=== PATIENT | female | born 1950 | race Native Hawaiian/Other Pacific Islander ===

== ENCOUNTER 2017-01-10 22:46 | Emergency (ER) | payer OTHER ==
[~2017-01-10] VITALS: Ht 162.6 cm; Wt 63.5 kg
[~2017-01-10 22:46] MED LIST: BACTRIM DS1 TAB PO; LAC PO; LAC30L PO; MAG PO; METOPROLOL SUCC25 M1; NEO500 PO; SER25 PO; TOP50 PO; ZOFI IV; ZOFRAN4 MG PO
[2017-01-10 23:06] VITALS: BP 133/86
== END 2017-01-10 23:51 | disposition left against medical advice (07) ==
LOC: ED 22:46
DX: Z53.21 Procedure and treatment not carried out due to patient leaving prior to being seen by health care provider (principal)

== ENCOUNTER 2017-03-04 22:02 | Inpatient (IN) | payer OTHER ==
[~2017-03-04] VITALS: Ht 165.1 cm; Wt 69.0 kg
[2017-03-04 22:50] LABS: BASOPHIL % 0.6 % (0-2)
[2017-03-04 22:53] LABS: PLATELET COUNT 94 x10^3mcL (130-400); RED CELL DISTRIBUTION WIDTH 15.8 % (11.5-14.5)
[2017-03-04 22:57] LABS: CALCIUM 8.3 mg/dL (8.5-10.1); CARBON DIOXIDE 22.7 mmol/L (21-32); CHLORIDE SERUM 110 mmol/L (98-107); CREATININE SERUM 0.7 mg/dL (0.6-1.0); GFR1 > 60 mL/min; GLUCOSE SERUM 104 mg/dL (74-106); POTASSIUM SERUM 3.2 mmol/L (3.5-5.1); SODIUM SERUM 144 mmol/L (136-145)
[2017-03-04 23:10] LABS: ALKALINE PHOSPHATASE 107 U/L (46-116); ALT/SGPT 29 U/L (14-59); AST/SGOT 49 U/L (15-37); BILIRUBIN TOTAL 3.44 mg/dL (0.20-1.00); MAGNESIUM 1.1 mg/dL (1.8-2.4); T4(THYROXINE) 4.8 ug/dL (4.7-13.3); TOTAL PROTEIN, SERUM 6.9 g/dL (6.4-8.2)
[2017-03-04 23:12] LABS: ALBUMIN 2.9 g/dL (3.4-5.0)
[2017-03-05 01:00] VITALS: BP 163/124
[2017-03-05 01:06] VITALS: Ht 165.1 cm; Wt 69.0 kg
[2017-03-05 02:22] LABS: T3 TOTAL 0.72 ng/mL
[2017-03-05 02:26] LABS: FREE T4 0.93 ng/dL (0.76-1.46)
[2017-03-05 02:30] LABS: FREE THYROXINE INDEX 1.6 ug/dL (1.4-4.5); T4(THYROXINE) 4.6 ug/dL (4.7-13.3)
[2017-03-05 02:57] LABS: PHOSPHOROUS 3.5 mg/dL (2.5-4.9)
[2017-03-05 03:00] LABS: CHOLESTEROL/HDL RATIO 1.9
[2017-03-05 06:06] VITALS: BP 134/74
[2017-03-05 06:41] LABS: BASOPHIL % 0.7 % (0-2)
[2017-03-05 06:57] LABS: PLATELET COUNT 69 x10^3mcL (130-400); RED CELL DISTRIBUTION WIDTH 15.9 % (11.5-14.5)
[2017-03-05 07:22] LABS: CARBON DIOXIDE 21.2 mmol/L (21-32); CHLORIDE SERUM 120 mmol/L (98-107); CREATININE SERUM 0.7 mg/dL (0.6-1.0); GFR1 > 60 mL/min; GLUCOSE SERUM 95 mg/dL (74-106); MAGNESIUM 2.8 mg/dL (1.8-2.4); PHOSPHOROUS 2.9 mg/dL (2.5-4.9); POTASSIUM SERUM 3.4 mmol/L (3.5-5.1); SODIUM SERUM 146 mmol/L (136-145)
[2017-03-05 07:55] VITALS: BP 138/99
[2017-03-05 10:50] LABS: UA SPECIFIC GRAVITY 1.025 (1.005-1.035); microscopic required? YES; urine erythrocyte NEGATIVE (NEGATIVE)
[2017-03-05 13:14] LABS: AMPHETAMINE QUAL UR NONE DETECTED (NEG <=1000)
[2017-03-05 14:04] VITALS: BP 138/82
[2017-03-05 18:00] VITALS: BP 146/90
[2017-03-05 21:37] VITALS: BP 141/84
[2017-03-06 06:16] LABS: BASOPHIL % 0.5 % (0-2)
[2017-03-06 06:25] VITALS: BP 148/73
[2017-03-06 06:30] LABS: CARBON DIOXIDE 23.8 mmol/L (21-32); CHLORIDE SERUM 109 mmol/L (98-107); CREATININE SERUM 0.7 mg/dL (0.6-1.0); GFR1 > 60 mL/min; GLUCOSE SERUM 90 mg/dL (74-106); MAGNESIUM 1.1 mg/dL (1.8-2.4); PHOSPHOROUS 3.3 mg/dL (2.5-4.9); POTASSIUM SERUM 3.5 mmol/L (3.5-5.1); SODIUM SERUM 140 mmol/L (136-145)
[2017-03-06 08:08] LABS: RED CELL DISTRIBUTION WIDTH 15.4 % (11.5-14.5)
[2017-03-06 08:47] LABS: PLATELET COUNT 48 x10^3mcL (130-400)
[2017-03-06 10:07] VITALS: BP 175/92
== END 2017-03-06 13:43 | disposition left against medical advice (07) | DRG 917 ==
LOC: ED 22:02 → DU 23:59
PROVIDERS: Emergency Medicine; Family Medicine; ADMIT Family Medicine
DX: T51.0X1A Toxic effect of ethanol, accidental (unintentional), initial encounter (principal); I50.43 Acute on chronic combined systolic (congestive) and diastolic (congestive) heart failure; G92 Toxic encephalopathy; E43 Unspecified severe protein-calorie malnutrition; I47.1 Supraventricular tachycardia; N39.0 Urinary tract infection, site not specified; E87.0 Hyperosmolality and hypernatremia; D61.818 Other pancytopenia; S42.201A Unspecified fracture of upper end of right humerus, initial encounter for closed fracture; F10.129 Alcohol abuse with intoxication, unspecified; S42.001A Fracture of unspecified part of right clavicle, initial encounter for closed fracture; E83.42 Hypomagnesemia; E87.6 Hypokalemia; I10 Essential (primary) hypertension; D69.59 Other secondary thrombocytopenia; F32.9 Major depressive disorder, single episode, unspecified; F12.10 Cannabis abuse, uncomplicated; Z68.26 Body mass index [BMI] 26.0-26.9, adult; Y90.8 Blood alcohol level of 240 mg/100 ml or more; Y92.009 Unspecified place in unspecified non-institutional (private) residence as the place of occurrence of the external cause; X58.XXXA Exposure to other specified factors, initial encounter; Y93.9 Activity, unspecified; Y92.9 Unspecified place or not applicable
CPT/HCPCS: 83880; 84439; 97110-GP; G0480; J0696; J1885; J3475; J7030; Q0092

== ENCOUNTER 2017-03-13 19:16 | Emergency (ER) | payer OTHER ==
[2017-03-13 20:25] LABS: BASOPHIL % 0.7 % (0-2); RED CELL DISTRIBUTION WIDTH 14.5 % (11.5-14.5)
[2017-03-13 20:28] LABS: CALCIUM 8.9 mg/dL (8.5-10.1); CARBON DIOXIDE 25.6 mmol/L (21-32); CHLORIDE SERUM 107 mmol/L (98-107); CREATININE SERUM 0.8 mg/dL (0.6-1.0); GFR1 > 60 mL/min; GLUCOSE SERUM 135 mg/dL (74-106); PLATELET COUNT 112 x10^3mcL (130-400); POTASSIUM SERUM 3.6 mmol/L (3.5-5.1); SODIUM SERUM 142 mmol/L (136-145)
[2017-03-13 20:33] LABS: ALKALINE PHOSPHATASE 199 U/L (46-116); ALT/SGPT 23 U/L (14-59); AST/SGOT 41 U/L (15-37); BILIRUBIN TOTAL 2.8 mg/dL (0.20-1.00); TOTAL PROTEIN, SERUM 7.2 g/dL (6.4-8.2)
[2017-03-13 20:34] LABS: ALBUMIN 3.2 g/dL (3.4-5.0)
[2017-03-13 21:11] LABS: CK-MB 1.2 ng/mL (0-3.6)
[2017-03-14 01:42] VITALS: BP 127/87
== END 2017-03-14 01:42 | disposition home or self-care (01) ==
LOC: ED 19:16
PROVIDERS: Emergency Medicine
DX: I49.9 Cardiac arrhythmia, unspecified (principal); E83.42 Hypomagnesemia; I10 Essential (primary) hypertension; I25.10 Atherosclerotic heart disease of native coronary artery without angina pectoris; F41.9 Anxiety disorder, unspecified; F99 Mental disorder, not otherwise specified; Z88.5 Allergy status to narcotic agent
CPT/HCPCS: 83880; J3475; J3490; J7030; Q0092

== ENCOUNTER 2017-03-29 16:43 | Emergency (ER) | payer OTHER ==
[~2017-03-29] VITALS: Ht 165.1 cm; Wt 68.0 kg
[2017-03-29 19:00] VITALS: BP 155/58
== END 2017-03-29 19:00 | disposition home or self-care (01) ==
LOC: ED 16:43
DX: I47.1 Supraventricular tachycardia (principal); F10.10 Alcohol abuse, uncomplicated; F41.9 Anxiety disorder, unspecified; I25.10 Atherosclerotic heart disease of native coronary artery without angina pectoris
CPT/HCPCS: J0153; J7030

== ENCOUNTER 2018-01-14 13:39 | Emergency (ER) | payer OTHER ==
[~2018-01-14] VITALS: Ht 165.1 cm; Wt 70.3 kg
[2018-01-14 13:43] VITALS: Ht 165.1 cm; Wt 70.3 kg
[2018-01-14 14:08] VITALS: BP 101/58
== END 2018-01-14 14:08 | disposition other institution (70) ==
LOC: ED 13:39
DX: Z02.89 Encounter for other administrative examinations (principal); I10 Essential (primary) hypertension; Z88.5 Allergy status to narcotic agent

== ENCOUNTER 2018-05-05 03:10 | Observation (INO) | payer OTHER ==
[~2018-05-05] VITALS: Ht 165.1 cm; Wt 71.9 kg
[2018-05-05 03:19] VITALS: Ht 165.1 cm; Wt 71.9 kg
[2018-05-05 04:33] LABS: BASOPHIL % 0.3 % (0-2); RED CELL DISTRIBUTION WIDTH 14.5 % (11.5-14.5)
[2018-05-05 04:42] LABS: CALCIUM 9.2 mg/dL (8.5-10.1); CARBON DIOXIDE 26.7 mmol/L (21-32); CHLORIDE SERUM 106 mmol/L (98-107); CREATININE SERUM 1.1 mg/dL (0.6-1.0); GFR1 52 mL/min; GLUCOSE SERUM 142 mg/dL (74-106); POTASSIUM SERUM 3.2 mmol/L (3.5-5.1); SODIUM SERUM 140 mmol/L (136-145)
[2018-05-05 04:51] LABS: ALKALINE PHOSPHATASE 227 U/L (46-116); ALT/SGPT 39 U/L (14-59); AST/SGOT 35 U/L (15-37); BILIRUBIN TOTAL 3.64 mg/dL (0.20-1.00); TOTAL PROTEIN, SERUM 6.7 g/dL (6.4-8.2)
[2018-05-05 04:52] LABS: PLATELET COUNT 94 x10^3mcL (130-400)
[2018-05-05 04:55] LABS: ALBUMIN 3.1 g/dL (3.4-5.0)
[2018-05-05 05:54] LABS: microscopic required? YES; urine erythrocyte NEGATIVE (NEGATIVE)
[2018-05-05 08:40] VITALS: BP 122/67
[2018-05-05 13:22] VITALS: BP 131/66
[2018-05-05 16:50] VITALS: BP 131/66
== END 2018-05-05 17:47 | disposition home or self-care (01) | DRG 310 ==
LOC: ED 03:10 → DU 06:31
PROVIDERS: Emergency Medicine
DX: I47.1 Supraventricular tachycardia (principal); I10 Essential (primary) hypertension; E03.9 Hypothyroidism, unspecified; F41.9 Anxiety disorder, unspecified
CPT/HCPCS: 83880; 84439; G0378; G0480; J0696; J1644

== ENCOUNTER 2018-07-11 14:04 | Emergency (ER) | payer OTHER ==
[2018-07-11 19:01] VITALS: BP 107/59
== END 2018-07-11 19:02 | disposition home or self-care (01) ==
LOC: ED 14:04
DX: S00.93XA Contusion of unspecified part of head, initial encounter (principal); I10 Essential (primary) hypertension; F41.9 Anxiety disorder, unspecified; Z88.5 Allergy status to narcotic agent; W01.10XA Fall on same level from slipping, tripping and stumbling with subsequent striking against unspecified object, initial encounter; Y93.89 Activity, other specified; Y92.89 Other specified places as the place of occurrence of the external cause; Y99.8 Other external cause status
CPT/HCPCS: 90715

== ENCOUNTER 2018-09-02 22:45 | Observation (INO) | payer OTHER ==
[~2018-09-02] VITALS: Ht 165.1 cm; Wt 67.8 kg
[2018-09-02 23:05] VITALS: Ht 165.1 cm; Wt 67.8 kg
[2018-09-03 00:02] LABS: BASOPHIL % 0.2 % (0-2)
[2018-09-03 00:04] LABS: PLATELET COUNT 56 x10^3mcL (130-400); RED CELL DISTRIBUTION WIDTH 14.7 % (11.5-14.5)
[2018-09-03 00:25] LABS: CALCIUM 10.5 mg/dL (8.5-10.1); CARBON DIOXIDE 22.2 mmol/L (21-32); CREATININE SERUM 1.3 mg/dL (0.6-1.0); POTASSIUM SERUM 3.3 mmol/L (3.5-5.1)
[2018-09-03 00:31] LABS: ALBUMIN 2.5 g/dL (3.4-5.0); TOTAL PROTEIN, SERUM 6.8 g/dL (6.4-8.2)
[2018-09-03 01:37] LABS: microscopic required? YES; urine erythrocyte 3+ (NEGATIVE)
[2018-09-03 04:44] VITALS: BP 132/70
[2018-09-03 06:24] LABS: BASOPHIL % 0.6 % (0-2)
[2018-09-03 06:38] LABS: PLATELET COUNT 54 x10^3mcL (130-400); RED CELL DISTRIBUTION WIDTH 14.7 % (11.5-14.5)
[2018-09-03 06:50] LABS: BILIRUBIN TOTAL 3.6 mg/dL (0.20-1.00); CALCIUM 10.2 mg/dL (8.5-10.1); CARBON DIOXIDE 22.4 mmol/L (21-32); CREATININE SERUM 1.1 mg/dL (0.6-1.0); MAGNESIUM 1.4 mg/dL (1.8-2.4); PHOSPHOROUS 3.4 mg/dL (2.5-4.9); POTASSIUM SERUM 3.5 mmol/L (3.5-5.1); TOTAL PROTEIN, SERUM 6.4 g/dL (6.4-8.2)
[2018-09-03 06:51] LABS: ALBUMIN 2.4 g/dL (3.4-5.0)
[2018-09-03 10:00] VITALS: BP 107/52
[2018-09-03 13:31] LABS: AMPHETAMINE QUAL UR NONE DETECTED (See below)
[2018-09-03 17:41] VITALS: BP 100/53
[2018-09-03 20:32] VITALS: BP 110/65
[2018-09-04 06:05] VITALS: BP 105/49
[2018-09-04 06:30] LABS: CALCIUM 9.2 mg/dL (8.5-10.1); CARBON DIOXIDE 21.1 mmol/L (21-32); MAGNESIUM 1.5 mg/dL (1.8-2.4); POTASSIUM SERUM 3.5 mmol/L (3.5-5.1)
[2018-09-04 06:59] LABS: BASOPHIL % 0.3 % (0-2)
[2018-09-04 07:05] LABS: PLATELET COUNT 61 x10^3mcL (130-400); RED CELL DISTRIBUTION WIDTH 15.1 % (11.5-14.5)
[2018-09-04 09:10] VITALS: BP 95/55
[2018-09-04 15:54] VITALS: BP 117/56
[2018-09-04 20:54] VITALS: BP 100/51
[2018-09-05 06:01] VITALS: BP 123/82
[2018-09-05 07:15] LABS: BASOPHIL % 0.2 % (0-2)
[2018-09-05 07:18] LABS: PLATELET COUNT 77 x10^3mcL (130-400)
[2018-09-05 07:25] LABS: ALKALINE PHOSPHATASE 85 U/L (46-116); ALT/SGPT 25 U/L (14-59); AST/SGOT 49 U/L (15-37); BILIRUBIN TOTAL 2.3 mg/dL (0.20-1.00); CARBON DIOXIDE 20.5 mmol/L (21-32); CHLORIDE SERUM 109 mmol/L (98-107); CREATININE SERUM 0.9 mg/dL (0.6-1.0); GFR1 > 60 mL/min; GLUCOSE SERUM 104 mg/dL (74-106); MAGNESIUM 1.2 mg/dL (1.8-2.4); PHOSPHOROUS 2.7 mg/dL (2.5-4.9); POTASSIUM SERUM 3.9 mmol/L (3.5-5.1); SODIUM SERUM 140 mmol/L (136-145)
[2018-09-05 07:42] LABS: TOTAL PROTEIN, SERUM 5.5 g/dL (6.4-8.2)
[2018-09-05 09:51] VITALS: BP 142/71
[2018-09-05] MEDS ORDERED: CEFDINIR300 M1 PO (12:29)
[2018-09-05 12:34] VITALS: BP 142/71
[2018-09-05 17:24] VITALS: BP 131/76
== END 2018-09-05 19:20 | disposition home health service (06) | DRG 690 ==
LOC: ED 22:45 → MU 09-03 03:21
PROVIDERS: Emergency Medicine; Internal Medicine Pulmonary Disease
DX: N39.0 Urinary tract infection, site not specified (principal); N17.9 Acute kidney failure, unspecified; E86.0 Dehydration; K70.30 Alcoholic cirrhosis of liver without ascites; F10.21 Alcohol dependence, in remission; F41.9 Anxiety disorder, unspecified; D69.59 Other secondary thrombocytopenia; Z68.23 Body mass index [BMI] 23.0-23.9, adult
CPT/HCPCS: 97110-GP; 97530-GP; G0378; G0480; J0696; J3475; J7030; J7120; Q0092

== ENCOUNTER 2018-09-19 00:27 | Inpatient (IN) | payer OTHER ==
[~2018-09-19] VITALS: Ht 165.1 cm; Wt 75.7 kg
[~2018-09-19 00:27] MED LIST changes: +CEFDINIR300 M1 PO
[2018-09-19 01:42] LABS: PLATELET COUNT 96 x10^3mcL (130-400); RED CELL DISTRIBUTION WIDTH 16.6 % (11.5-14.5)
[2018-09-19 01:50] LABS: CALCIUM 8.3 mg/dL (8.5-10.1); CARBON DIOXIDE 22.7 mmol/L (21-32); CHLORIDE SERUM 108 mmol/L (98-107); CREATININE SERUM 0.8 mg/dL (0.6-1.0); GFR1 > 60 mL/min; GLUCOSE SERUM 177 mg/dL (74-106); POTASSIUM SERUM 3.5 mmol/L (3.5-5.1); SODIUM SERUM 139 mmol/L (136-145)
[2018-09-19 01:55] LABS: ALKALINE PHOSPHATASE 295 U/L (46-116); ALT/SGPT 26 U/L (14-59); AST/SGOT 35 U/L (15-37); BILIRUBIN TOTAL 1.97 mg/dL (0.20-1.00); T3 TOTAL 0.91 ng/mL; TOTAL PROTEIN, SERUM 6.5 g/dL (6.4-8.2)
[2018-09-19 01:57] LABS: ALBUMIN 2.6 g/dL (3.4-5.0)
[2018-09-19] MEDS ORDERED: ALDACTONE25 MG PO ×2 (02:00→02:04)
[2018-09-19] MEDS ORDERED: BEN20 PO ×2 (02:00→02:01)
[2018-09-19] MEDS ORDERED: NEURONTIN100 MG PO (02:01)
[2018-09-19] MEDS ORDERED: METOPROLOL SUCC50 M2 PO (02:02)
[2018-09-19] MEDS ORDERED: LASIX20 MG PO (02:02)
[2018-09-19] MEDS ORDERED: PANTOPRAZOLE SO40 M1 PO (02:03)
[2018-09-19] MEDS ORDERED: D3 20002000 IU PO (02:03)
[2018-09-19 02:17] LABS: FREE T4 1.03 ng/dL (0.76-1.46); FREE THYROXINE INDEX 1.4 ug/dL (1.4-4.5); T4(THYROXINE) 3.7 ug/dL (4.7-13.3)
[2018-09-19 04:35] VITALS: BP 117/83
[2018-09-19 07:42] VITALS: BP 128/75
[2018-09-19 07:51] VITALS: Ht 165.1 cm; Wt 75.7 kg
[2018-09-19 11:58] VITALS: BP 105/52
[2018-09-19 15:40] VITALS: BP 111/62
[2018-09-19 17:40] VITALS: BP 109/71
[2018-09-19 21:02] VITALS: BP 139/79
[2018-09-20 05:39] VITALS: BP 113/63
[2018-09-20 07:28] LABS: CALCIUM 8.5 mg/dL (8.5-10.1); CARBON DIOXIDE 22.9 mmol/L (21-32); CHLORIDE SERUM 112 mmol/L (98-107); CREATININE SERUM 0.9 mg/dL (0.6-1.0); GFR1 > 60 mL/min; GLUCOSE SERUM 104 mg/dL (74-106); MAGNESIUM 1.3 mg/dL (1.8-2.4); SODIUM SERUM 143 mmol/L (136-145)
[2018-09-20 08:14] LABS: BASOPHIL % 0.5 % (0-2)
[2018-09-20] MEDS ORDERED: MAGNESIUM OXID400 MG PO (08:14)
[2018-09-20 08:15] LABS: RED CELL DISTRIBUTION WIDTH 15.6 % (11.5-14.5)
[2018-09-20 08:16] LABS: PLATELET COUNT 90 x10^3mcL (130-400)
[2018-09-20 08:40] VITALS: BP 134/67
[2018-09-20 12:52] VITALS: BP 134/57
[2018-09-20 13:18] VITALS: BP 134/57
== END 2018-09-20 14:41 | disposition home or self-care (01) | DRG 308 ==
LOC: ED 00:27 → DU 03:05 → IC 03:05 → DU 03:05 → IC 03:45 → DU 04:08
PROVIDERS: Emergency Medicine; Internal Medicine Pulmonary Disease
DX: I47.1 Supraventricular tachycardia (principal); I50.33 Acute on chronic diastolic (congestive) heart failure; K76.6 Portal hypertension; F41.9 Anxiety disorder, unspecified; K70.30 Alcoholic cirrhosis of liver without ascites; F10.20 Alcohol dependence, uncomplicated; D69.59 Other secondary thrombocytopenia; R16.1 Splenomegaly, not elsewhere classified; R54 Age-related physical debility; H26.9 Unspecified cataract; I11.0 Hypertensive heart disease with heart failure; I25.10 Atherosclerotic heart disease of native coronary artery without angina pectoris; Y90.0 Blood alcohol level of less than 20 mg/100 ml; Z68.29 Body mass index [BMI] 29.0-29.9, adult; Z91.14 Patient's other noncompliance with medication regimen; E83.42 Hypomagnesemia
CPT/HCPCS: 83880; 84439; J0153; J0282; J1644; J3475; J7030; J7040; Q0092

== ENCOUNTER 2019-01-24 13:27 | Emergency (ER) | payer OTHER ==
[~2019-01-24] VITALS: Ht 165.1 cm; Wt 69.9 kg
[~2019-01-24 13:27] MED LIST changes: +ALDACTONE25 MG PO; +BEN20 PO; +D3 20002000 IU PO; +LASIX20 MG PO; +MAGNESIUM OXID400 MG PO; +METOPROLOL SUCC50 M2 PO; +NEURONTIN100 MG PO; +PANTOPRAZOLE SO40 M1 PO
[2019-01-24 13:33] VITALS: Ht 165.1 cm; Wt 69.9 kg
[2019-01-24 15:39] VITALS: BP 124/98
== END 2019-01-24 15:51 | disposition home or self-care (01) ==
LOC: ED 13:27
DX: S09.8XXA Other specified injuries of head, initial encounter (principal); I49.9 Cardiac arrhythmia, unspecified; I10 Essential (primary) hypertension; F41.9 Anxiety disorder, unspecified; J32.9 Chronic sinusitis, unspecified; Z88.5 Allergy status to narcotic agent; W19.XXXA Unspecified fall, initial encounter; Y93.89 Activity, other specified; Y92.89 Other specified places as the place of occurrence of the external cause; Y99.8 Other external cause status

== ENCOUNTER 2019-03-26 13:56 | Emergency (ER) | payer OTHER ==
[~2019-03-26] VITALS: Ht 165.1 cm; Wt 68.0 kg
[2019-03-26 14:05] VITALS: Ht 165.1 cm; Wt 68.0 kg
[2019-03-26 15:10] LABS: BASOPHIL % 0.7 % (0-2)
[2019-03-26 15:12] LABS: PLATELET COUNT 86 x10^3mcL (130-400); RED CELL DISTRIBUTION WIDTH 16.5 % (11.5-14.5)
[2019-03-26 15:27] LABS: CALCIUM 9.2 mg/dL (8.5-10.1); CARBON DIOXIDE 24.3 mmol/L (21-32); CREATININE SERUM 2.6 mg/dL (0.6-1.0)
[2019-03-26 15:37] LABS: BILIRUBIN TOTAL 7.4 mg/dL (0.20-1.00); TOTAL PROTEIN, SERUM 7.9 g/dL (6.4-8.2)
[2019-03-26 15:39] LABS: ALBUMIN 3.3 g/dL (3.4-5.0)
[2019-03-26 19:41] VITALS: BP 106/74
== END 2019-03-26 19:41 | disposition home or self-care (01) ==
LOC: ED 13:56
PROVIDERS: Emergency Medicine
DX: I12.9 Hypertensive chronic kidney disease with stage 1 through stage 4 chronic kidney disease, or unspecified chronic kidney disease (principal); N18.9 Chronic kidney disease, unspecified; F10.10 Alcohol abuse, uncomplicated; F41.9 Anxiety disorder, unspecified; Z98.61 Coronary angioplasty status
CPT/HCPCS: 36415; J7030

== ENCOUNTER 2019-11-22 16:51 | Emergency (ER) | payer OTHER ==
[~2019-11-22] VITALS: Ht 165.1 cm; Wt 72.6 kg
[2019-11-22 17:04] VITALS: Ht 165.1 cm; Wt 72.6 kg
[2019-11-22 19:22] VITALS: BP 135/79
== END 2019-11-22 19:27 | disposition home or self-care (01) ==
LOC: ED 16:51
DX: S09.90XA Unspecified injury of head, initial encounter (principal); M54.2 Cervicalgia; I10 Essential (primary) hypertension; Z88.5 Allergy status to narcotic agent; X58.XXXA Exposure to other specified factors, initial encounter; Y93.89 Activity, other specified; Y92.89 Other specified places as the place of occurrence of the external cause; Y99.8 Other external cause status
CPT/HCPCS: 90715

== ENCOUNTER 2020-01-07 02:29 | Observation (INO) | payer OTHER ==
[~2020-01-07] VITALS: Ht 165.1 cm; Wt 72.6 kg
[2020-01-07 02:35] VITALS: Ht 165.1 cm; Wt 72.6 kg
[2020-01-07 03:36] LABS: BASOPHIL % 0.6 % (0-2); PLATELET COUNT 154 x10^3mcL (130-400); RED CELL DISTRIBUTION WIDTH 14.4 % (11.5-14.5)
[2020-01-07 03:58] LABS: CALCIUM 8.4 mg/dL (8.5-10.1); CARBON DIOXIDE 22.8 mmol/L (21-32); CHLORIDE SERUM 112 mmol/L (98-107); CREATININE SERUM 0.9 mg/dL (0.6-1.0); GLUCOSE SERUM 101 mg/dL (74-106); POTASSIUM SERUM 3.8 mmol/L (3.5-5.1); SODIUM SERUM 149 mmol/L (136-145)
[2020-01-07 04:03] LABS: ALKALINE PHOSPHATASE 123 U/L (46-116); ALT/SGPT 22 U/L (14-59); AST/SGOT 38 U/L (15-37); BILIRUBIN TOTAL 1.7 mg/dL (0.20-1.00); TOTAL PROTEIN, SERUM 6.6 g/dL (6.4-8.2)
[2020-01-07 10:24] VITALS: BP 129/66
[2020-01-07] MEDS ORDERED: METOPROLOL SUCC50 M2 PO (10:27)
[2020-01-07] MEDS ORDERED: ELIQUIS5 M1 PO (10:28)
[2020-01-07 11:51] VITALS: BP 129/66
== END 2020-01-07 12:37 | disposition home or self-care (01) ==
LOC: ED 02:29 → DU 04:33
PROVIDERS: Emergency Medicine; ADMIT Internal Medicine Pulmonary Disease
DX: I48.91 Unspecified atrial fibrillation (principal); I10 Essential (primary) hypertension
CPT/HCPCS: 83880; G0378; J2060; J3490; J7030; Q0092

== ENCOUNTER 2020-01-11 22:00 | Emergency (ER) | payer OTHER ==
[~2020-01-11] VITALS: Ht 165.1 cm; Wt 72.6 kg
[~2020-01-11 22:00] MED LIST changes: +ELIQUIS5 M1 PO
[2020-01-11 22:10] VITALS: Ht 165.1 cm; Wt 72.6 kg
[2020-01-11 23:35] LABS: BASOPHIL % 0.4 % (0-2); PLATELET COUNT 134 x10^3mcL (130-400); RED CELL DISTRIBUTION WIDTH 14.3 % (11.5-14.5)
[2020-01-11 23:43] LABS: CALCIUM 8.2 mg/dL (8.5-10.1); CHLORIDE SERUM 112 mmol/L (98-107); CREATININE SERUM 0.8 mg/dL (0.6-1.0); GLUCOSE SERUM 90 mg/dL (74-106); POTASSIUM SERUM 3.6 mmol/L (3.5-5.1); SODIUM SERUM 152 mmol/L (136-145)
[2020-01-11 23:48] LABS: ALKALINE PHOSPHATASE 98 U/L (46-116); ALT/SGPT 20 U/L (14-59); AST/SGOT 35 U/L (15-37); BILIRUBIN TOTAL 2.4 mg/dL (0.20-1.00); LIPASE 59 IU/L (73-393); TOTAL PROTEIN, SERUM 6.9 g/dL (6.4-8.2)
[2020-01-12 02:06] VITALS: BP 128/78
[2020-01-13] MEDS ORDERED: VAL5 PO (13:23)
== END 2020-01-12 02:06 | disposition home or self-care (01) ==
LOC: ED 22:00
PROVIDERS: Emergency Medicine
DX: R00.2 Palpitations (principal); F10.129 Alcohol abuse with intoxication, unspecified; E83.42 Hypomagnesemia; I10 Essential (primary) hypertension; Z88.5 Allergy status to narcotic agent
CPT/HCPCS: G0480; J3475; J7030; Q0092

== ENCOUNTER 2020-01-12 17:37 | Observation (INO) | payer OTHER ==
[~2020-01-12] VITALS: Ht 165.1 cm; Wt 77.4 kg
[2020-01-12 18:26] LABS: BASOPHIL % 0.6 % (0-2); RED CELL DISTRIBUTION WIDTH 14.4 % (11.5-14.5)
[2020-01-12 18:27] LABS: PLATELET COUNT 118 x10^3mcL (130-400)
[2020-01-12 19:01] LABS: CALCIUM 7.8 mg/dL (8.5-10.1); CARBON DIOXIDE 22.7 mmol/L (21-32); CHLORIDE SERUM 108 mmol/L (98-107); CREATININE SERUM 0.8 mg/dL (0.6-1.0); GLUCOSE SERUM 103 mg/dL (74-106); POTASSIUM SERUM 3.4 mmol/L (3.5-5.1); SODIUM SERUM 144 mmol/L (136-145)
[2020-01-12 19:14] LABS: LIPASE 70 IU/L (73-393); MAGNESIUM 1.4 mg/dL (1.8-2.4)
[2020-01-12 20:02] LABS: T4(THYROXINE) 3.8 ug/dL (4.7-13.3)
[2020-01-12 23:17] LABS: urine erythrocyte NEGATIVE (NEGATIVE)
[2020-01-12 23:21] LABS: microscopic required? YES
[2020-01-12 23:33] LABS: AMPHETAMINE QUAL UR NONE DETECTED (See below)
[2020-01-12 23:48] VITALS: BP 138/63
[2020-01-12 23:53] VITALS: Ht 165.1 cm; Wt 77.4 kg
[2020-01-13 06:21] VITALS: BP 114/68
[2020-01-13 07:17] LABS: BASOPHIL % 0.4 % (0-2)
[2020-01-13 07:27] LABS: PLATELET COUNT 93 x10^3mcL (130-400); RED CELL DISTRIBUTION WIDTH 14.8 % (11.5-14.5)
[2020-01-13 08:21] LABS: ALKALINE PHOSPHATASE 130 U/L (46-116); ALT/SGPT 20 U/L (14-59); AST/SGOT 39 U/L (15-37); CALCIUM 7.4 mg/dL (8.5-10.1); CARBON DIOXIDE 22.7 mmol/L (21-32); CHLORIDE SERUM 114 mmol/L (98-107); CREATININE SERUM 0.8 mg/dL (0.6-1.0); GLUCOSE SERUM 105 mg/dL (74-106); MAGNESIUM 2.3 mg/dL (1.8-2.4); POTASSIUM SERUM 3.5 mmol/L (3.5-5.1); SODIUM SERUM 147 mmol/L (136-145)
[2020-01-13 08:25] LABS: ALBUMIN 2.4 g/dL (3.4-5.0); TOTAL PROTEIN, SERUM 5.5 g/dL (6.4-8.2)
[2020-01-13 09:21] VITALS: BP 142/81
[2020-01-13 13:19] VITALS: BP 147/73
[2020-01-13] MEDS ORDERED: VAL5 PO (13:23)
[2020-01-13 14:10] VITALS: BP 147/73
== END 2020-01-13 15:53 | disposition home or self-care (01) ==
LOC: ED 17:37 → DU 20:57
PROVIDERS: Emergency Medicine; ADMIT Internal Medicine Pulmonary Disease
DX: F10.129 Alcohol abuse with intoxication, unspecified (principal); I48.91 Unspecified atrial fibrillation; D64.9 Anemia, unspecified; K21.9 Gastro-esophageal reflux disease without esophagitis; E55.9 Vitamin D deficiency, unspecified; G62.89 Other specified polyneuropathies
CPT/HCPCS: 82962; 83880; C9113; G0378; G0480; J3475; J3480; J3490; J7030; J7042; J7050; Q0092

== ENCOUNTER 2020-01-22 22:35 | Inpatient (IN) | payer OTHER, SELFPAY ==
[~2020-01-22] VITALS: Ht 165.1 cm; Wt 84.1 kg
[~2020-01-22 22:35] MED LIST changes: +VAL5 PO
[2020-01-22 22:38] VITALS: Ht 165.1 cm; Wt 84.1 kg
[2020-01-22 23:52] LABS: microscopic required? YES; urine erythrocyte 1+ (NEGATIVE)
[2020-01-23 00:19] LABS: ALKALINE PHOSPHATASE 92 U/L (46-116); ALT/SGPT 57 U/L (14-59); AST/SGOT 124 U/L (15-37); BILIRUBIN TOTAL 5.7 mg/dL (0.20-1.00); C REACTIVE PROTEIN 0.5 mg/dL (<=0.9); CALCIUM 8.2 mg/dL (8.5-10.1); CARBON DIOXIDE 20.1 mmol/L (21-32); CHLORIDE SERUM 106 mmol/L (98-107); GLUCOSE SERUM 131 mg/dL (74-106); LACTIC DEHYDROGENASE (LDH) 299 U/L (100-190); SODIUM SERUM 145 mmol/L (136-145)
[2020-01-23 00:25] LABS: ALBUMIN 3.1 g/dL (3.4-5.0)
[2020-01-23 00:27] LABS: BASOPHIL % 0.6 % (0-2); PLATELET COUNT 47 x10^3mcL (130-400); RED CELL DISTRIBUTION WIDTH 15.6 % (11.5-14.5)
[2020-01-23 00:28] LABS: POTASSIUM SERUM 2.8 mmol/L (3.5-5.1)
[2020-01-23 02:48] VITALS: BP 145/96
[2020-01-23 03:00] VITALS: BP 149/89
[2020-01-23 05:48] LABS: BASOPHIL % 0.4 % (0-2)
[2020-01-23 06:03] LABS: RED CELL DISTRIBUTION WIDTH 15.8 % (11.5-14.5)
[2020-01-23 06:05] LABS: T3 TOTAL 0.97 ng/mL
[2020-01-23 06:09] LABS: ALKALINE PHOSPHATASE 88 U/L (46-116); ALT/SGPT 55 U/L (14-59); AST/SGOT 121 U/L (15-37); BILIRUBIN TOTAL 6.69 mg/dL (0.20-1.00); CALCIUM 7.7 mg/dL (8.5-10.1); CARBON DIOXIDE 20.2 mmol/L (21-32); CHLORIDE SERUM 107 mmol/L (98-107); CREATININE SERUM 0.8 mg/dL (0.6-1.0); GLUCOSE SERUM 109 mg/dL (74-106); SODIUM SERUM 145 mmol/L (136-145); TOTAL PROTEIN, SERUM 6.7 g/dL (6.4-8.2)
[2020-01-23 06:14] LABS: FREE T4 1.18 ng/dL (0.76-1.46); FREE THYROXINE INDEX 2.4 ug/dL (1.4-4.5); T4(THYROXINE) 6.4 ug/dL (4.7-13.3)
[2020-01-23 06:14] LABS: ALBUMIN 2.9 g/dL (3.4-5.0)
[2020-01-23 06:18] LABS: MAGNESIUM 0.8 mg/dL (1.8-2.4); POTASSIUM SERUM 2.8 mmol/L (3.5-5.1)
[2020-01-23 07:30] VITALS: BP 138/59
[2020-01-23 09:34] LABS: PLATELET COUNT 35 x10^3mcL (130-400)
[2020-01-23 11:45] VITALS: BP 101/57
[2020-01-23 17:01] VITALS: BP 111/85
[2020-01-23 22:00] VITALS: BP 96/71
[2020-01-24 06:00] VITALS: BP 130/76
[2020-01-24 07:45] VITALS: BP 105/68
[2020-01-24 07:57] LABS: BASOPHIL % 0.5 % (0-2)
[2020-01-24 08:35] LABS: PLATELET COUNT 31 x10^3mcL (130-400)
[2020-01-24 08:47] LABS: CALCIUM 7.9 mg/dL (8.5-10.1); CHLORIDE SERUM 103 mmol/L (98-107); GLUCOSE SERUM 103 mg/dL (74-106); MAGNESIUM 1.3 mg/dL (1.8-2.4); POTASSIUM SERUM 3.8 mmol/L (3.5-5.1); SODIUM SERUM 139 mmol/L (136-145)
[2020-01-24] MEDS ORDERED: METOPROLOL SUCC50 M2 PO (09:03)
[2020-01-24 10:42] VITALS: BP 107/61
== END 2020-01-24 11:50 | disposition home health service (06) | DRG 308 ==
LOC: ED 22:35 → DU 01-23 00:55 → IC 01-23 00:55 → DU 01-23 00:55 → IC 01-23 02:30 → DU 01-23 13:20
PROVIDERS: Emergency Medicine; ADMIT Internal Medicine Pulmonary Disease
DX: I48.91 Unspecified atrial fibrillation (principal); J96.01 Acute respiratory failure with hypoxia; N39.0 Urinary tract infection, site not specified; E46 Unspecified protein-calorie malnutrition; F10.239 Alcohol dependence with withdrawal, unspecified; E86.0 Dehydration; F10.229 Alcohol dependence with intoxication, unspecified; B96.1 Klebsiella pneumoniae [K. pneumoniae] as the cause of diseases classified elsewhere; E87.6 Hypokalemia; E83.42 Hypomagnesemia; R05 Cough; D69.59 Other secondary thrombocytopenia; K70.30 Alcoholic cirrhosis of liver without ascites; K70.10 Alcoholic hepatitis without ascites; G62.9 Polyneuropathy, unspecified; I10 Essential (primary) hypertension; E03.9 Hypothyroidism, unspecified; E78.5 Hyperlipidemia, unspecified; F41.9 Anxiety disorder, unspecified; F32.9 Major depressive disorder, single episode, unspecified; Z79.01 Long term (current) use of anticoagulants; Y90.5 Blood alcohol level of 100-119 mg/100 ml
CPT/HCPCS: 84439; 87804; G0378; G0480; J0282; J0456; J0696; J2060; J2405; J2543; J3475; J3480; J3490; J7030; J7040; J7050; J7060; Q0092

== ENCOUNTER 2020-04-15 15:24 | Emergency (ER) | payer OTHER ==
[~2020-04-15] VITALS: Ht 165.1 cm; Wt 69.4 kg
[2020-04-15 15:48] VITALS: Ht 165.1 cm; Wt 69.4 kg
[2020-04-15 17:04] LABS: BASOPHIL % 0.1 % (0-2); PLATELET COUNT 146 x10^3mcL (130-400)
[2020-04-15 17:05] LABS: RED CELL DISTRIBUTION WIDTH 15.3 % (11.5-14.5)
[2020-04-15 17:06] LABS: CALCIUM 8.7 mg/dL (8.5-10.1); CARBON DIOXIDE 27.9 mmol/L (21-32); CHLORIDE SERUM 104 mmol/L (98-107); CREATININE SERUM 0.9 mg/dL (0.6-1.0); GLUCOSE SERUM 121 mg/dL (74-106); POTASSIUM SERUM 3.1 mmol/L (3.5-5.1); SODIUM SERUM 141 mmol/L (136-145)
[2020-04-15 17:11] LABS: ALKALINE PHOSPHATASE 139 U/L (46-116); ALT/SGPT 27 U/L (14-59); AST/SGOT 34 U/L (15-37); BILIRUBIN TOTAL 2.5 mg/dL (0.20-1.00); TOTAL PROTEIN, SERUM 7.4 g/dL (6.4-8.2)
[2020-04-15 17:14] LABS: ALBUMIN 3.2 g/dL (3.4-5.0)
[2020-04-15 17:41] LABS: microscopic required? NO
[2020-04-15 17:50] LABS: UA SPECIFIC GRAVITY 1.015 (1.005-1.035); urine erythrocyte NEGATIVE (NEGATIVE)
[2020-04-15 18:30] VITALS: BP 145/62
== END 2020-04-15 18:30 | disposition home or self-care (01) ==
LOC: ED 15:24
PROVIDERS: Emergency Medicine
DX: L03.115 Cellulitis of right lower limb (principal); I10 Essential (primary) hypertension; I11.0 Hypertensive heart disease with heart failure; I50.9 Heart failure, unspecified; Z88.8 Allergy status to other drugs, medicaments and biological substances; Z88.6 Allergy status to analgesic agent
CPT/HCPCS: Q0092

== ENCOUNTER 2020-06-04 22:28 | Emergency (ER) | payer OTHER, SELFPAY ==
[~2020-06-04] VITALS: Ht 165.1 cm; Wt 72.6 kg
[2020-06-04 22:29] VITALS: Ht 165.1 cm; Wt 72.6 kg
[2020-06-04 23:59] VITALS: BP 112/61
== END 2020-06-04 23:59 | disposition home or self-care (01) ==
LOC: ED 22:28
DX: J04.0 Acute laryngitis (principal); N39.0 Urinary tract infection, site not specified; B34.9 Viral infection, unspecified; I49.9 Cardiac arrhythmia, unspecified; I11.0 Hypertensive heart disease with heart failure; I50.9 Heart failure, unspecified; Z88.5 Allergy status to narcotic agent; Z88.8 Allergy status to other drugs, medicaments and biological substances; Z20.828 Contact with and (suspected) exposure to other viral communicable diseases
CPT/HCPCS: U0003-CS

== ENCOUNTER 2020-07-11 04:19 | Observation (INO) | payer OTHER ==
[~2020-07-11] VITALS: Ht 162.6 cm; Wt 71.8 kg
[2020-07-11 04:33] VITALS: Ht 162.6 cm; Wt 71.8 kg
[2020-07-11 06:49] LABS: CALCIUM 8.5 mg/dL (8.5-10.1); CARBON DIOXIDE 24.2 mmol/L (21-32); CHLORIDE SERUM 109 mmol/L (98-107); CREATININE SERUM 0.7 mg/dL (0.6-1.0); GLUCOSE SERUM 116 mg/dL (74-106); POTASSIUM SERUM 3.5 mmol/L (3.5-5.1); SODIUM SERUM 146 mmol/L (136-145)
[2020-07-11 07:03] LABS: BASOPHIL % 0.4 % (0-2); PLATELET COUNT 137 x10^3mcL (130-400); RED CELL DISTRIBUTION WIDTH 14.6 % (11.5-14.5)
[2020-07-11 09:29] LABS: UA SPECIFIC GRAVITY 1.015 (1.005-1.035); microscopic required? YES; urine erythrocyte TRACE (NEGATIVE)
[2020-07-11 09:44] VITALS: BP 163/73
[2020-07-11 11:39] VITALS: BP 163/73
[2020-07-11 12:11] VITALS: BP 166/70
[2020-07-11 17:02] VITALS: BP 173/71
[2020-07-11 20:05] VITALS: BP 136/64
[2020-07-12 05:24] VITALS: BP 154/59
[2020-07-12 06:46] LABS: BASOPHIL % 0.4 % (0-2); RED CELL DISTRIBUTION WIDTH 14.4 % (11.5-14.5)
[2020-07-12 06:56] LABS: ALKALINE PHOSPHATASE 72 U/L (46-116); ALT/SGPT 23 U/L (14-59); AST/SGOT 34 U/L (15-37); CALCIUM 7.7 mg/dL (8.5-10.1); CARBON DIOXIDE 23.6 mmol/L (21-32); CHLORIDE SERUM 106 mmol/L (98-107); CREATININE SERUM 0.8 mg/dL (0.6-1.0); GLUCOSE SERUM 116 mg/dL (74-106); POTASSIUM SERUM 3.5 mmol/L (3.5-5.1); SODIUM SERUM 139 mmol/L (136-145); TOTAL PROTEIN, SERUM 6.2 g/dL (6.4-8.2)
[2020-07-12 07:07] LABS: PLATELET COUNT 96 x10^3mcL (130-400)
[2020-07-12 07:21] LABS: ALBUMIN 2.7 g/dL (3.4-5.0)
[2020-07-12 08:23] VITALS: BP 158/74
[2020-07-12 12:33] VITALS: BP 142/56
[2020-07-12 14:44] VITALS: BP 144/78
[2020-07-12 20:00] VITALS: BP 168/77
[2020-07-13 04:45] VITALS: BP 137/63
[2020-07-13 07:02] LABS: ALKALINE PHOSPHATASE 69 U/L (46-116); ALT/SGPT 22 U/L (14-59); AST/SGOT 40 U/L (15-37); CALCIUM 7.6 mg/dL (8.5-10.1); CARBON DIOXIDE 22.6 mmol/L (21-32); CHLORIDE SERUM 102 mmol/L (98-107); GLUCOSE SERUM 186 mg/dL (74-106); POTASSIUM SERUM 3.2 mmol/L (3.5-5.1); SODIUM SERUM 138 mmol/L (136-145); TOTAL PROTEIN, SERUM 6.6 g/dL (6.4-8.2)
[2020-07-13 07:06] LABS: ALBUMIN 2.7 g/dL (3.4-5.0)
[2020-07-13 07:54] LABS: BASOPHIL % 0 % (0-2); PLATELET COUNT 114 x10^3mcL (130-400); RED CELL DISTRIBUTION WIDTH 14.2 % (11.5-14.5)
[2020-07-13 08:23] VITALS: BP 130/47
[2020-07-13] MEDS ORDERED: TYL325 PO (15:32)
[2020-07-13 15:53] VITALS: BP 130/47
[2020-07-13 16:00] VITALS: BP 140/68
== END 2020-07-13 19:47 ==
LOC: ED 04:19 → MU 07:43
PROVIDERS: Emergency Medicine; ADMIT Hospitalist; ATTEND Hospitalist
DX: M16.12 Unilateral primary osteoarthritis, left hip (principal); D72.829 Elevated white blood cell count, unspecified; K76.0 Fatty (change of) liver, not elsewhere classified; I47.1 Supraventricular tachycardia; I50.9 Heart failure, unspecified; Z91.19 Patient's noncompliance with other medical treatment and regimen
CPT/HCPCS: G0378; J0131; J0690; J1170; J1650; J2270; J2405; J3010; J3490; J7030; Q0092

== ENCOUNTER 2020-07-17 15:37 | Emergency (ER) | payer OTHER ==
[~2020-07-17] VITALS: Ht 165.1 cm; Wt 72.6 kg
[~2020-07-17 15:37] MED LIST changes: +TYL325 PO
[2020-07-17 15:53] VITALS: Ht 165.1 cm; Wt 72.6 kg
[2020-07-17 18:24] LABS: BASOPHIL % 0.1 % (0-2); PLATELET COUNT 178 x10^3mcL (130-400)
[2020-07-17 18:46] LABS: CALCIUM 8.9 mg/dL (8.5-10.1); CARBON DIOXIDE 23.3 mmol/L (21-32); CHLORIDE SERUM 105 mmol/L (98-107); CREATININE SERUM 0.9 mg/dL (0.6-1.0); GLUCOSE SERUM 139 mg/dL (74-106); POTASSIUM SERUM 4.2 mmol/L (3.5-5.1); SODIUM SERUM 138 mmol/L (136-145)
[2020-07-17 18:50] LABS: ALBUMIN 2.8 g/dL (3.4-5.0); ALKALINE PHOSPHATASE 133 U/L (46-116); ALT/SGPT 23 U/L (14-59); AST/SGOT 49 U/L (15-37); BILIRUBIN TOTAL 2.05 mg/dL (0.20-1.00); TOTAL PROTEIN, SERUM 6.9 g/dL (6.4-8.2)
[2020-07-17 20:21] VITALS: BP 154/68
== END 2020-07-17 20:20 | disposition home or self-care (01) ==
LOC: ED 15:37
PROVIDERS: Emergency Medicine
DX: R60.0 Localized edema (principal); I10 Essential (primary) hypertension; Z88.5 Allergy status to narcotic agent

== ENCOUNTER 2020-08-12 20:33 | Observation (INO) | payer OTHER ==
[~2020-08-12] VITALS: Ht 165.1 cm; Wt 72.6 kg
[2020-08-12 20:44] VITALS: Ht 165.1 cm; Wt 72.6 kg
--- NOTE | 2020-08-12 21:21 | NUR ---
PT WAS SEEN SITTING UP AT SIDE OF BED. UPON ENTERING ROOM, PT YELLED "GIVE ME MY CLOTHES. I'M GOING TO GO HOME". INFORMED PT THAT IT IS UNSAFE FOR HER TO GO HOME ON HER OWN AT THIS TIME, BUT IF SHE HAS SOMEONE TO TAKE HER HOME, THEN SHE CAN LEAVE. PT ALSO REFUSED EKG STATING I CAN'T AFFORD IT. GAVE UNDERSTANDING. PT SLURRING HER WORDS AND STATED SHE MAY HAVE BEEN THE ONE TO CALL THE POLICE BECAUSE SHE HAD NOT HAD ANY FOOD ALL DAY. PT IS A&OX3, DOES NOT RECALL WHO CALLED POLICE, SLOW TO RECALL ROOMATES NAMES AND DOES NOT RECALL PHONE NUMBERS TO ANYONE WHO CAN PICK HER UP. INFORMED PT THAT I WILL LOOK FOR CONTACT INFORMATION TO CALL FOR RIDE HOME. PT REQUESTED FOR US TO CALL [employer] TO PROVIDE HER RIDE HOME, INFORMED PT THAT SHE HAS TOO MUCH ALCOHOL IN HER SYSTEM FOR HER TO SAFELY GO HOME IN A [facility]AXI. PT REPEATEDLY STATED SHE WILL WALK HOME OR TAKE A [facility]. CONTINUED TO EDUCATE PT ON SAFE DISCHARGE. PT GAVE UNDERSTANDING AND WAS ASSISTED TO LAYING POSITION WITH ASSISTANCE FROM SARAY COUGHLIN AND MYSELF.
--- NOTE | 2020-08-12 21:45 | NUR ---
SPOKE WITH PT CARLOS LADD REGARDING PICKING UP PT. PER WILBERTO, PT IS TOO DRUNK AND IS UNABLE TO TAKE CARE OF HERSELF WHEN SHE IS DRUNK. HE REQUESTED THAT BE MORE SOBER PRIOR TO COMING HOME. SPOKE WITH PT AGAIN REGARDING STAYING TO GET IV FLUIDS. PT AGREED AT THIS TIME. PT IS SLOW TO ANSWER AND INTERMITTENTLY UNABLE TO STAY ON TOPIC WHEN DISCUSSING PLAN OF CARE. PT AGREED AGAIN TO STAY IN HOSPITAL TO REST. INFORMED PRIMARY LUZ MYLES.
--- NOTE | 2020-08-12 21:57 | NUR ---
PT CONTINUES TO STATE "I WANT TO GO HOME, HE IS GOING TO TAKE ALL OF MY MONEY" WHEN I ASKED WHO SHE STATES "MY ROOMATE HAS ACCESS TO ALL MY MONEY"
[2020-08-12 22:31] LABS: BASOPHIL % 0.6 % (0-2); PLATELET COUNT 147 x10^3mcL (130-400)
[2020-08-12 23:00] LABS: ALBUMIN 3.3 g/dL (3.4-5.0); ALKALINE PHOSPHATASE 127 U/L (46-116); ALT/SGPT 24 U/L (14-59); AST/SGOT 60 U/L (15-37); CHLORIDE SERUM 103 mmol/L (98-107); CREATININE SERUM 0.9 mg/dL (0.6-1.0); GLUCOSE SERUM 102 mg/dL (74-106); LIPASE 53 IU/L (73-393); MAGNESIUM 1.2 mg/dL (1.8-2.4); SODIUM SERUM 138 mmol/L (136-145); TOTAL PROTEIN, SERUM 7.6 g/dL (6.4-8.2)
[2020-08-12 23:01] LABS: CHOLESTEROL 103 mg/dL (<200)
[2020-08-12 23:02] LABS: POTASSIUM SERUM 2.9 mmol/L (3.5-5.1)
--- NOTE | 2020-08-12 23:44 | NUR ---
PT MEDICATED PER ORDER. SEE EMAR.
--- NOTE | 2020-08-12 23:47 | NUR ---
INFORMED PT OF HER ALCOHOL LEVEL AT THIS TIME. PT STATED SHE DIDN'T DRINK THAT MUCH.
--- NOTE | 2020-08-13 01:27 | NUR ---
PT LAYING WITH EYES CLOSED. CALM AND COOPERATIVE AT THIS TIME. WILL CONTINUE TO MONITOR.
--- NOTE | 2020-08-13 01:36 | NUR ---
STRAIGHT CATH FOR URINE SPECIMEN COMPLETED BY LUZ MYLES USING STERILE TECHNIQUE WITH MYSELF TO ASSIST AT BEDSIDE. PT TOLERATED WELL AND RETURNED TO SLEEP AFTER.
[2020-08-13 01:56] LABS: microscopic required? YES; urine erythrocyte 2+ (NEGATIVE)
[2020-08-13 02:05] LABS: AMPHETAMINE QUAL UR NONE DETECTED (See below)
--- NOTE | 2020-08-13 02:21 | NUR ---
PT NOTED TO BE SLEEPING AT THIS TIME, VS STABLE, WILL CONTINUE TO MONITER
--- NOTE | 2020-08-13 03:29 | NUR ---
RECEIVED REPORT FROM SHAMEKA IN ED, AWAITING PATIENT ON FLOOR.
--- NOTE | 2020-08-13 03:41 | NUR ---
GAVE REPORT TO GIOVANNY ESCOBAR TO ASSUME CARE. PT TRANSFERED BY EMT ALFONSO AND LUZ BRAVO
--- NOTE | 2020-08-13 04:10 | NUR ---
RECEIVED PT FROM DAYSPAFT NURSE. PT IS AAOX4, DENIES HEADACHE/NAUSEA/DIZZINESS AT THIS TIME. PATIENT IS TELE #35, NSR, DENIES CHEST PAIN. PULSES ARE EQUAL BILATERALLY, NO EDEMA NOTED. PATIENT IS CTA, ON RA, DENIES SOB. NO ACUTE DISTRESS NOTED AT THIS TIME. ABDOMEN IS SOFT AND ROUND, NO PAIN UPON PALPATION, NORMOACTIVE X4 QUADRANTS, LAST BM 08/12 DESCRIBED BY PATIENT FORMED AND NORMAL. PT IS INCONTIENT. PATIENT IS AMBULATORY AT BASELINE WITH WALKER, DESCRIBES GENERALIZED WEAKNESS, UNABLE TO AMBULATE AT THIS TIME. PATIENT HAS S/P SURGICAL SITE IN LEFT HIP, CLOSED WOUND. PATIENT DENIES PAIN AT THIS TIME. IV TO LFA 20G, SITE INTACT. PATIENT IS CURRENTLTY RUNNING 20MEQ OF POTASSIUM, 2ND BAG INFUSING FROM ER. PT IS CALM AND COOPERATIVE. ALL SAFETY MEASURES IN PLACE. BED IN LOWEST POSITION, CALL LIGHT WITHIN REACH. WILL CONTINUE TO MONITOR.
[2020-08-13 04:18] VITALS: BP 104/45
--- NOTE | 2020-08-13 06:05 | NUR ---
PATIENT HAS NOW FINISHED POTASSIUM 20MEQ 2ND BAG, STARTING D51/2NS W/40MEQ K. ALL SAFETY MEASURES IN PLACE. BED IN LOWEST POSITION, CALL LIGHT WITHIN REACH. WILL CONTINUE TO MONITOR.
--- NOTE | 2020-08-13 06:39 | NUR ---
PATIENT IS RESTING WITH EYES CLOSED. NO ACUTE DISTRESS NOTED SINCE ADMISSION. PATIENT HAS BEEN RESTING. PATIENT FINISHED 2ND BAG OF 20MEQ. TOTAL POTASSIUM RECEIVED AT THIS POINT IS 100 MEQ POTASSIUM, INCLUDING 60MEQ PO AND 2 OF 20MEQ IV GIVEN. PATIENT NO ON D51/2NSW/40MEQ K RUNNING AT 80ML/HR IN LFA 2OG IV. SITE INTACT, NO REDNESS OR SWELLING NOTED. BED IN LOWEST POSITION, CALL LIGHT WITHIN REACH. WILL CONTINUE TO MONITOR AND ENDORSE CONTINUITY OF CARE TO DAYSHIFT NURSE WHEN APPROPRIATE.
--- NOTE | 2020-08-13 07:22 | NUR ---
RECEIVED PT FROM UNCRATER NURSE. PT IN BED SLEEPING, AROUSABLE, RESP E/U ON RA. NO ACUTE DISTRESS NOTED. ON TELE 25 SHOWING NSR. IV TO LFA W/ NO SIGNS OF INFILTRATION, IVF INFUSING WELL. BED IN LOWEST POSITION AND CALL LIGHT WITHIN REACH. WILL CONTINUE TO MONITOR.
--- NOTE | 2020-08-13 07:27 | NUR ---
ENDORSED CARE TO DAYSHIFT NURSE. ALL QUESTIONS/CONCERNS ADDRESSED.
[2020-08-13 08:27] VITALS: BP 102/70
--- NOTE | 2020-08-13 12:14 | NUR ---
PT C/O OF L HIP PAIN RATED 5/10. ADMINISTERED PRN TYLENOL ORDERED PER EMAR. COMFORT MEASURES IMPLEMENTED. WILL CONTINUE TO MONITOR.
[2020-08-13 13:10] VITALS: BP 136/70
[2020-08-13 16:09] VITALS: BP 133/80
--- NOTE | 2020-08-13 18:27 | NUR ---
PT IN BED SLEEPING, AROUSABLE, RESP E/U ON RA. NO ACUTE DISTRESS NOTED AT THIS TIME. IV SALINE LOCK W/ NO ERYTHEMA/EDEMA. BED IN LOWEST POSITION, CALL LIGHT WITHIN REACH. WILL ENDORSE TO ONCOMING NURSE.
--- NOTE | 2020-08-13 20:00 | NUR ---
PATIENT RECEIVED AWAKE, ALERT, ORIENTED X4 IN BED. RESPIRATION EVEN AND UNLABORED, ON ROOM AIR. SALINE LOCK TO L FOREARM PATENT AND INTACT. DENIES PAIN AT THIS TIME. DENIES GI DISCOMFORT. LBM 08/13. INCONTINENT OF URINE. GENERALIZED WEAKNESS, USES WALKER, NEEDS ASSISTANCE WITH ADL'S. 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 ON TELE #35. FALL PRECAUTION OBSERVED. PLACED CALL LIGHT WITHIN REACH. WILL CONTINUE TO MONITOR.
[2020-08-13 20:57] VITALS: BP 133/69
[2020-08-14 06:06] VITALS: BP 114/71
--- NOTE | 2020-08-14 06:12 | NUR ---
PATIENT RESTING IN BED. RESPIRATION EVEN AND UNLABORED, ON ROOM AIR. SALINE LOCK TO L FOREARM PATENT AND INTACT. DENIES DISCOMFORT/PAIN AT THIS TIME. INCONTINENT OF URINE. ASSISTED WITH NEEDS. SAFETY OBSERVED. PLACED BED IN THE LOWEST POSITION. PLACED CALL LIGHT WITHIN REACH AT ALL TIMES.
[2020-08-14 06:40] LABS: MAGNESIUM 1.2 mg/dL (1.8-2.4); PHOSPHOROUS 3.2 mg/dL (2.5-4.9)
[2020-08-14 06:41] LABS: BASOPHIL % 0.4 % (0-2)
[2020-08-14 07:15] LABS: PLATELET COUNT 93 x10^3mcL (130-400); RED CELL DISTRIBUTION WIDTH 15.1 % (11.5-14.5)
--- NOTE | 2020-08-14 07:30 | NUR ---
PATIENT AWAKE AND ALERT. IV PATENT. PATIENT DENIES ANY PAIN AT THIS TIME. BED LOCKED IN LOWEST POSITION. CALL LIGHT WITHIN REACH. PATIENT STATED SHE WILL CALL IF SHE NEEDS ANYTHING OR WANTS TO USE THE RESTROOM SO NOT TO FALL.
[2020-08-14 09:10] VITALS: BP 168/86
[2020-08-14] MEDS ORDERED: KEFLEX500 M1 PO (12:13)
[2020-08-14] MEDS ORDERED: ATIVAN0.5 M1 PO (12:14)
[2020-08-14] MEDS ORDERED: THI100 PO (12:18)
[2020-08-14] MEDS ORDERED: LEADER MAGNESIU1 TAB PO (12:18)
[2020-08-14] MEDS ORDERED: KLOR-CON M2020 MEQ PO (12:18)
[2020-08-14] MEDS ORDERED: FOL1 PO (12:18)
[2020-08-14 12:20] VITALS: BP 153/91
--- NOTE | 2020-08-14 13:26 | NUR ---
BP: 171/94 (112). PT DENIES HEADACHE, CHEST PAIN OR SOB. DR. VEGA INFORMED. ORDERED FOR HYDRALAZINE 25 MG PO PRN FOR HTN. WILL F/U W/ MED ADMINISTRATION.
[2020-08-14 14:48] VITALS: BP 148/93
--- NOTE | 2020-08-14 16:07 | NUR ---
AFTER GIVING PRN HTN MEDICATION, PATIENT'S B/P WENT TO 148/93, HR 75. WENT OVER DISCHARGE PAPERWORK WITH PATIENT. EXPLAINED TO PATIENT AND SON THAT MEDICATIONS HAD BEEN SENT BY THE DOCTOR TO HER PHARMACY FOR HER TO DUMP MOTOR OPERATOR. GAVE PATIENT THE PRESCRIPTION FOR ATIVAN TO DUMP MOTOR OPERATOR ALSO. REMOVED IV INTACT, NO PROBLEMS. REMOVED TELEMETRY BOX AND RETURNED TO TELE OFFICE. PATIENT DRESSED HERSELF. SON WAS NOTIFIED SHE WOULD BE DISCHARGED. SHE LEFT WITH ALL BELONGINGS IN PRIVATE VEHICLE WITH SON, TAKEN DOWN IN WHEELCHAIR AND ASSISTED INTO VEHICLE.
== END 2020-08-14 15:53 | disposition home health service (06) ==
LOC: ED 20:33 → DU 08-13 00:20
PROVIDERS: Emergency Medicine; ADMIT Internal Medicine; ATTEND Internal Medicine
DX: F10.139 Alcohol abuse with withdrawal, unspecified (principal); E87.6 Hypokalemia; E83.42 Hypomagnesemia; I10 Essential (primary) hypertension
CPT/HCPCS: 83880; 90658; G0378; G0480; J0696; J1644; J2060; J3411; J3475; J3480; J3490; J7040; J7042; J7050; Q0092

== ENCOUNTER 2020-08-30 01:43 | Emergency (ER) | payer OTHER ==
[~2020-08-30] VITALS: Ht 165.1 cm; Wt 74.4 kg
[~2020-08-30 01:43] MED LIST changes: +ATIVAN0.5 M1 PO; +FOL1 PO; +KEFLEX500 M1 PO; +KLOR-CON M2020 MEQ PO; +LEADER MAGNESIU1 TAB PO; +THI100 PO
[2020-08-30 01:59] VITALS: Ht 165.1 cm; Wt 74.4 kg
[2020-08-30 07:20] VITALS: BP 119/78
== END 2020-08-30 07:20 | disposition home or self-care (01) ==
LOC: ED 01:43
DX: M25.552 Pain in left hip (principal); G89.29 Other chronic pain; F10.129 Alcohol abuse with intoxication, unspecified; I50.9 Heart failure, unspecified; I11.0 Hypertensive heart disease with heart failure; Z98.890 Other specified postprocedural states; Z88.5 Allergy status to narcotic agent; Z88.8 Allergy status to other drugs, medicaments and biological substances; Y90.9 Presence of alcohol in blood, level not specified